=== PATIENT | female | born 1990 | race Caucasian/White ===

== ENCOUNTER 2018-07-02 15:27 | Emergency (ER) | payer OTHER, SELFPAY ==
[2018-07-02 15:30] VITALS: BMI 37.8
--- NOTE | 2018-07-02 16:12 | ED_ITS ---
HPI - Back Pain/Injury <ALBARO Rivera - Last Filed: 07/06/18 12:06> General Chief Complaint: Back Pain/Injury Stated Complaint: LOW BACK PAIN Time Seen by Provider: 07/02/18 16:12 Source: patient Mode of arrival: ambulatory Limitations: no limitations History of Present Illness HPI Narrative: 27-year-old healthy female that is a nonsmoker here for complaint of having lower back pain for the last several days. 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 She denies any direct trauma to the lower back. She reports increased pain with movement of the lumbar spine area. No loss of bladder or bowel control. She was seen by her primary care provider for same symptoms and was prescribed a muscle relaxer along with over- the-counter ibuprofen. She states that she is having pain that is radiating into her left buttocks area. She is ambulatory into the emergency room. MD Complaint: back pain Related Data Home Medications Medication Instructions Recorded Confirmed venlafaxine [Effexor XR] 150 mg PO QPM #0 04/25/17 07/02/18 acetaminophen [Mapap 1 tab PO PRN PRN 07/02/18 07/02/18 (acetaminophen)] etonogestrel [Nexplanon] 1 ea SUBDERMAL DIRECTED 07/02/18 07/02/18 lidocaine 1 patch TOPICAL PRN PRN 07/02/18 07/02/18 methocarbamol 1 tab PO BID 07/02/18 07/02/18 oxycodone 5 mg PO TID PRN 07/02/18 07/02/18 Previous Rx's Medication Instructions Recorded prednisone 40 mg PO DAILY #8 tab 07/02/18 Allergies Allergy/AdvReac Type Severity Reaction Status Date / Time hydrocodone [HYDROCODONE] Allergy Intermediate Hives Verified 07/02/18 16:46 Review of Systems <ALBARO Rivera - Last Filed: 07/06/18 12:06> Constitutional Denies chills, Denies fever(s), Denies lethargy and Denies weakness Eyes Denies change in vision, Denies eye discharge, Denies irritation and Denies loss of vision ENT Ears, Nose, Mouth, and Throat: Denies change in voice, Denies neck pain and Denies sore throat Cardiovascular Denies chest pain, Denies irregular heart rhythm, Denies lightheadedness, Denies palpitations, Denies dyspnea, Denies dyspnea on exertion and Denies orthopnea Respiratory Denies cough, Denies dyspnea, Denies dyspnea on exertion and Denies wheezing Gastrointestinal Gastrointestinal: Denies abdominal pain, Denies change in bowel habits, Denies diarrhea, Denies nausea and Denies vomiting Genitourinary Denies hematuria, Denies flank pain, Denies urinary incontinence and Denies urinary urgency Musculoskeletal Denies neck pain Comments: Lower back pain Integumentary/Breasts Denies pruritus, Denies erythema, Denies rash and Denies wounds Neurologic Denies confusion, Denies loss of vision and Denies weakness Psychiatric Denies anxiety, Denies confusion, Denies depression, Denies homicidal ideation and Denies suicidal ideation Endocrine Denies palpitations Hematologic/Lymphatic Denies easy bruising Allergic/Immunologic Denies wheezing Exam <ALBARO Rivera - Last Filed: 07/06/18 12:06> Initial Vital Signs Initial Vital Signs: Vital Signs Temperature 98.4 F 07/02/18 16:42 Pulse Rate 93 H 07/02/18 16:42 Blood Pressure 114/85 07/02/18 16:42 Pulse Oximetry 99 07/02/18 16:42 Const General: cooperative and well developed Nutritional Appearance: well nourished Orientation: alert, awake, oriented x3 and not confused HENMT Mouth: oral mucosae normal and oropharynx normal Eyes Conjunctivae: conjunctivae normal Sclera: sclerae normal Pupils: PERRL EOM: EOM intact bilaterally Resp Effort & Inspection: normal respiratory effort, able to speak in complete sentences, no respiratory distress and no use of accessory muscles Auscultation: clear to auscultation bilaterally, no rales, no rhonchi and no wheezes Cardio Rate: regular rate Rhythm: regular rhythm Heart Sounds: no click, no gallops, no murmurs and no rubs Pulses: normal peripheral pulses Back/Spine/Pelvis Thoracic/Lumbar Spine: paraspinal tenderness Other: Left paraspinal tenderness to the lumbar region with muscle spasm. Distal sensation is intact. Distal pulses are intact. Distal range of motion is intact. Skin General: no rashes or lesions noted, No jaundice and No petechiae Neuro General: alert, oriented x3, gait normal and no focal motor deficits Speech: speech normal <Tey [place], DO - Last Filed: 07/06/18 17:22> Initial Vital Signs Initial Vital Signs: Vital Signs Temperature 98.4 F 07/02/18 16:42 Pulse Rate 93 H 07/02/18 16:42 Blood Pressure 114/85 07/02/18 16:42 Pulse Oximetry 99 07/02/18 16:42 Course <ALBARO Rivera - Last Filed: 07/06/18 12:06> Vital Signs - 8 hr 07/02/18 16:42 Temperature 98.4 F Pulse Rate 93 H Blood Pressure [Right Arm] 114/85 Pulse Oximetry 99 <Tye Herrera DO - Last Filed: 07/06/18 17:22> Vital Signs - 8 hr 07/02/18 16:42 Temperature 98.4 F Pulse Rate 93 H Blood Pressure [Right Arm] 114/85 Pulse Oximetry 99 MDM - Back Pain/Injury <ALBARO Rivera - Last Filed: 07/06/18 12:06> Lab Data Point of Care Testing Test Results Negative Urine Dip Bedside Urine Glucose Negative Bedside Urine Bilirubin - Negative Bedside Urine Ketone - Negative Urine Specific [place] 1.020 Bedside Urine Occult Blood - Negative Bedside Urine pH 6.0 Bedside Urine Protein - Negative Bedside Urine Urobilinogen - Negative Bedside Urine Nitrite - Negative Bedside Urine Leukocytes - Negative Esterase MDM Narrative Medical decision making narrative: Urinalysis was obtained was negative for blood, and for urinary tract infection. Patient denies any loss of bladder or bowel control. Signs and symptoms presents as acute lumbar strain with sciatica. Will have her continue taking ibuprofen along with the methocarbamol. Will add short course of prednisone to help with sciatica. Rest area. Follow up with primary care provider in the next several days for re -evaluation. For any worsening symptoms return to the emergency room. <Tye Herrera DO - Last Filed: 07/06/18 17:22> Lab Data Point of Care Testing Test Results Negative Urine Dip Bedside Urine Glucose Negative Bedside Urine Bilirubin - Negative Bedside Urine Ketone - Negative Urine Specific [place] 1.020 Bedside Urine Occult Blood - Negative Bedside Urine pH 6.0 Bedside Urine Protein - Negative Bedside Urine Urobilinogen - Negative Bedside Urine Nitrite - Negative Bedside Urine Leukocytes - Negative Esterase Discharge Plan Departure Patient Disposition: Home Clinical Impression: Low back pain Discharge Date/Time: 07/02/18 18:20 Interventions: ED Discharge Assessment Last Done: 07/02/18 18:20 Instructions: DI for Back Pain With Sciatica Activity Restrictions/Additional Instructions: Urinalysis was negative for and also urinary tract infection. Signs and symptoms presents lower back strain with sciatica. You are prescribed short course of prednisone to help with anti-inflammatory effects use as directed. Continue using the ibuprofen and the methocarbamol as already prescribed. Follow up with primary care provider in the next several days for re-evaluation. Rest the area. Gentle range of motion to painful areas to help keep muscles loose. For any worsening symptoms return to the emergency room. Prescriptions: New prednisone 20 mg tablet 40 mg PO DAILY Qty: 8 RF: 0 No Action venlafaxine [Effexor XR] 150 MG capsule,extended release 24hr 150 mg PO QPM Qty: 0 RF: 0 methocarbamol 500 mg tablet 1 tab PO BID RF: 0 oxycodone 5 mg tablet 5 mg PO TID PRN (Reason: Pain, Severe) RF: 0 acetaminophen [Mapap (acetaminophen)] 325 mg tablet 1 tab PO PRN PRN (Reason: Pain, Mild) RF: 0 lidocaine 5 % adhesive patch,medicated 1 patch Topical PRN PRN (Reason: Pain, Moderate) RF: 0 etonogestrel [Nexplanon] 68 mg Implant 1 ea Subdermal DIRECTED RF: 0 Referrals: Yevgeniy Plasencia MD [Primary Care Provider] - Stand Alone Forms: Work/School Restrictions <Tye Herrera DO - Last Filed: 07/06/18 17:22> Cosign ED Attending Brendon Attestation: I was immediately available in the department for consultation. Documentation has been reviewed. I agree with assessment and plan.
[2018-07-02 16:42] VITALS: BP 114/85; PULSE 93; TEMP 36.9; O2SAT 99
== END 2018-07-02 18:20 | disposition home or self-care (01) ==
PROVIDERS: Emergency Provider Nurse Practitioner Family
DX: M54.5 Low back pain (principal); T73.3XXA Exhaustion due to excessive exertion, initial encounter; Y99.0 Civilian activity done for income or pay
CPT/HCPCS: 81003; 81025; 99282